=== PATIENT | male | born 1965 | race Caucasian/White ===

== ENCOUNTER 2018-04-06 10:02 | Emergency (ER) | payer MEDICARE ==
[~2018-04-06] VITALS: Ht 172.7 cm; Wt 84.4 kg
--- NOTE | 2018-04-06 10:51 | PHYS DOC ---
Past History Past Medical History: Bipolar Adult General Chief Complaint Chief Complaint: BLOODY STOOL HPI HPI Patient is a 52 year old male who presents with complaining of rectal bleeding. Patient states he had history of hemorrhoids and previous episodes of rectal bleeding but this morning had a normal bowel movement and after finishing his bowel movement had dark colored blood in the toilet stool that was larger than his usual patient denies chest pain, shortness of breath, palpitation, no pain, constipation and diarrhea, taking blood thinner medication or changing his bipolar medication. Review of Systems Review of Systems Constitutional: Denies fever or chills [] Eyes: Denies change in visual acuity, redness, or eye pain [] HENT: Denies nasal congestion or sore throat [] Respiratory: Denies cough or shortness of breath [] Cardiovascular: No additional information not addressed in HPI [] GI: Denies abdominal pain, nausea, vomiting, reports bloody stools. : Denies dysuria or hematuria [] Musculoskeletal: Denies back pain or joint pain [] Integument: Denies rash or skin lesions [] Neurologic: Denies headache, focal weakness or sensory changes [] Endocrine: Denies polyuria or polydipsia [] All other systems were reviewed and found to be within normal limits, except as documented in this note. Allergies Allergies Allergies Coded Allergies Type Severity Reaction Last Updated Verified risperidone Allergy Mild 04/06/18 Yes Physical Exam Physical Exam Constitutional: Well developed, well nourished, no acute distress, non-toxic appearance. [] HENT: Normocephalic, atraumatic, oropharynx moist, no oral exudates, nose normal. [] Eyes: PERRLA, EOMI, conjunctiva normal, no discharge. [] Neck: Normal range of motion, no tenderness, supple, no stridor. [] Cardiovascular:Heart rate regular rhythm, no murmur [] Lungs & Thorax: Bilateral breath sounds clear to auscultation [] Abdomen: Bowel sounds normal, soft, no tenderness, no masses, no pulsatile masses. 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 [] Back: No tenderness, no CVA tenderness. [] Extremities: No tenderness, no cyanosis, no clubbing, ROM intact, no edema. [] Neurologic: Alert and oriented X 3, normal motor function, normal sensory function, no focal deficits noted. [] Psychologic: Affect normal, judgement normal, mood normal. [] EKG EKG [] Radiology/Procedures Radiology/Procedures [] Course & Med Decision Making Course & Med Decision Making Pertinent Labs studies reviewed. (See chart for details) Dilution of patient in ER showed 52-year-old male patient presented to ER with complaining of one episode of rectal bleeding after bowel movement. Patient had unremarkable physical exam and labs except for external hemorrhoids and positive guaiac test. 4 episodes of baseball amount of bleeding. He was in ER. Patient history of hemorrhoids and seen by GI specialist and had colonoscopy 2 years ago. Patient instructed to use sitz baths and contact with his GI specialist tomorrow. Patient instructed to return to ER with continued to have rectal bleeding. Dragon Disclaimer Dragon Disclaimer This electronic medical record was generated, in whole or in part, using a voice recognition dictation system. Departure Departure: Impression: Primary Impression: External hemorrhoid, bleeding Disposition: HOME, SELF-CARE (at 11:30) Condition: STABLE Patient Instructions: Hemorrhoids, Sitz Bath Additional Instructions: Drink plenty of liquids Follow-up with your GI specialist tomorrow Return to ER if not getting better Scripts Hydrocortisone (ANUSOL-HC) 30 Gm Cream..g. 1 SARAH TP BID, #30 GM 0 Refills Prov: KAILTYNN SALEEM MD 04/06/18 KAITLYNN SALEEM MD Apr 06, 2018 10:51
[2018-04-06 11:02] LABS: HEMATOCRIT 42.3 % (39.0-53.0); HEMOGLOBIN 14.3 g/dL (13.0-17.5); RED BLOOD COUNT 4.79 x10^6/uL (4.30-5.70); RED CELL DISTRIBUTION WIDTH 13.9 % (11.5-14.5); WHITE BLOOD COUNT 4.6 x10^3/uL (4.0-11.0)
[2018-04-06 11:11] LABS: FECAL OB PT POSITIVE (NEG)
[2018-04-06 11:15] LABS: ALBUMIN 3.9 g/dL (3.4-5.0); ALBUMIN/GLOBULIN RATIO 1.1 (1.0-1.7); CALCIUM 9.2 mg/dL (8.5-10.1); CREATININE 1.1 mg/dL (0.7-1.3); GFR 70.3; POTASSIUM 3.9 mmol/L (3.5-5.1); TOTAL BILIRUBIN 0.4 mg/dL (0.2-1.0); TOTAL PROTEIN 7.3 g/dL (6.4-8.2)
[2018-04-06] MEDS ORDERED: HYDR30CR61 TP (11:34)
[2018-04-06 11:45] VITALS: BP 128/95
== END 2018-04-06 11:46 | disposition home or self-care (01) ==
LOC: ER 10:02
DX: K64.4 Residual hemorrhoidal skin tags (principal); F31.9 Bipolar disorder, unspecified; Z88.8 Allergy status to other drugs, medicaments and biological substances
CPT/HCPCS: 36415; 80053; 82274; 85027; 85610; 85730; 99284

== ENCOUNTER 2018-05-24 09:50 | Emergency (ER) | payer MEDICARE ==
[~2018-05-24] VITALS: Ht 165.1 cm; Wt 81.6 kg
[~2018-05-24 09:50] MED LIST: HYDR30CR61 TP
[2018-05-24] MEDS ORDERED: IV NORMAL SALINE 1,000ML 1,000 ML IV SCH (10:30)
[2018-05-24 10:42] LABS: BASO % 1 % (0-3); EOS % 1 % (0-3); HEMATOCRIT 39.2 % (39.0-53.0); HEMOGLOBIN 13.3 g/dL (13.0-17.5); LYMPH % 24 % (24-48); MEAN CORPUSCULAR HEMOGLOBIN 30 pg (25-35); MEAN CORPUSCULAR HGB CONC 34 g/dL (31-37); MEAN CORPUSCULAR VOLUME 89 fL (79-100); MONO # 0.4 x10^3/uL (0.0-1.1); MONO % 8 % (0-9); NEUT # 2.8 x10^3uL (1.8-7.7); NEUT % 66 % (31-73); PLATELET COUNT 182 x10^3/uL (140-400); RED BLOOD COUNT 4.43 x10^6/uL (4.30-5.70); RED CELL DISTRIBUTION WIDTH 13.9 % (11.5-14.5); WHITE BLOOD COUNT 4.3 x10^3/uL (4.0-11.0)
[2018-05-24 10:47] LABS: CALCIUM 8.9 mg/dL (8.5-10.1); CREATININE 1.2 mg/dL (0.7-1.3); GFR 63.6; POTASSIUM 3.9 mmol/L (3.5-5.1)
--- NOTE | 2018-05-24 11:14 | PHYS DOC ---
Past History Past Medical History: Anxiety, Bipolar Past Surgical History: Knee Replacement, Other Smoking: Cigarettes Alcohol Use: None Drug Use: None Adult General Chief Complaint Chief Complaint: RECTAL BLEED HPI HPI 52-year-old male presents rectal bleeding for the last 2 days. Patient states that he has some bright red blood in the toilet after his last 2 bowel movements. He states he is not constipated. He takes a stool softener daily. He had an extremely worried repaired a little over a month ago. His follow up appointment stated he was healed with no complications. He denies pain with defecation. He denies dizziness, shortness breath, chest pain. He has no other complaints. Review of Systems Review of Systems Constitutional: Denies fever or chills [] Eyes: Denies change in visual acuity, redness, or eye pain [] HENT: Denies nasal congestion or sore throat [] Respiratory: Denies cough or shortness of breath [] Cardiovascular: No additional information not addressed in HPI [] GI: Rectal bleeding[] : Denies dysuria or hematuria [] Musculoskeletal: Denies back pain or joint pain [] Integument: Denies rash or skin lesions [] Neurologic: Denies headache, focal weakness or sensory changes [] Endocrine: Denies polyuria or polydipsia [] All other systems were reviewed and found to be within normal limits, except as documented in this note. Current Medications Current Medications Current Medications Medications (Trade) Dose Ordered Sig/[facility] Start Time Stop Time Status Last Admin Dose Admin Sodium Chloride 1,000 ml @ 1,000 mls/hr Q1H 05/24/18 10:30 05/24/18 11:29 05/24/18 10:33 1,000 MLS/HR Allergies Allergies Allergies Coded Allergies Type Severity Reaction Last Updated Verified risperidone Allergy Mild 04/06/18 Yes Physical Exam Physical Exam Constitutional: Well developed, well nourished, no acute distress, non-toxic appearance. [] HENT: Normocephalic, atraumatic, bilateral external ears normal, oropharynx moist, no oral exudates, nose normal. [] Eyes: PERRLA, EOMI, conjunctiva normal, no discharge. [] Neck: Normal range of motion, no tenderness, supple, no stridor. [] Cardiovascular:Heart rate regular rhythm, no murmur [] Lungs & Thorax: Bilateral breath sounds clear to auscultation [] Abdomen: Bowel sounds normal, soft, no tenderness, no masses, no pulsatile masses. [] Skin: Warm, dry, no erythema, no rash. [] Back: No tenderness, no CVA tenderness. [] Extremities: No tenderness, no cyanosis, no clubbing, ROM intact, no edema. [] Neurologic: Alert and oriented X 3, normal motor function, normal sensory function, no focal deficits noted. [] Psychologic: Affect normal, judgement normal, mood normal. : External anal exam normal with no hemorrhoids seen. Digital rectal exam negative for obvious blood, nonpainful, no hemorrhoids. [] Current Patient Data Vital Signs Vital Signs Date Time Temp Pulse Resp B/P (MAP) Pulse Ox O2 Delivery O2 Flow Rate FiO2 05/24/18 10:31 80 16 112/71 (85) 96 Room Air 05/24/18 09:55 97.9 Lab Results Laboratory Tests Test 05/24/18 10:25 White Blood Count 4.3 x10^3/uL (4.0-11.0) Red Blood Count 4.43 x10^6/uL (4.30-5.70) Hemoglobin 13.3 g/dL (13.0-17.5) Hematocrit 39.2 % (39.0-53.0) Mean Corpuscular Volume 89 fL (79-100) Mean Corpuscular Hemoglobin 30 pg (25-35) Mean Corpuscular Hemoglobin Concent 34 g/dL (31-37) Red Cell Distribution Width 13.9 % (11.5-14.5) Platelet Count 182 x10^3/uL (140-400) Neutrophils (%) (Auto) 66 % (31-73) Lymphocytes (%) (Auto) 24 % (24-48) Monocytes (%) (Auto) 8 % (0-9) Eosinophils (%) (Auto) 1 % (0-3) Basophils (%) (Auto) 1 % (0-3) Neutrophils # (Auto) 2.8 x10^3uL (1.8-7.7) Lymphocytes # (Auto) 1.0 x10^3/uL (1.0-4.8) Monocytes # (Auto) 0.4 x10^3/uL (0.0-1.1) Eosinophils # (Auto) 0.0 x10^3/uL (0.0-0.7) Basophils # (Auto) 0.0 x10^3/uL (0.0-0.2) Sodium Level 137 mmol/L (136-145) Potassium Level 3.9 mmol/L (3.5-5.1) Chloride Level 102 mmol/L (98-107) Carbon Dioxide Level 27 mmol/L (21-32) Anion Gap 8 (6-14) Blood Urea Nitrogen 13 mg/dL (8-26) Creatinine 1.2 mg/dL (0.7-1.3) Estimated GFR (Cockcroft-Gault) 63.6 Glucose Level 104 mg/dL (70-99) H Calcium Level 8.9 mg/dL (8.5-10.1) EKG EKG [] Radiology/Procedures Radiology/Procedures [] Course & Med Decision Making Course & Med Decision Making Pertinent Labs and Imaging studies reviewed. (See chart for details) The patient's labs are unremarkable. He is not anemic. There was no blood on rectal exam. I believe he does had a small fissure that is self resolving. He is stable for discharge at this time. [] Dragon Disclaimer Dragon Disclaimer This electronic medical record was generated, in whole or in part, using a voice recognition dictation system. Departure Departure: Referrals: MARC BENNETT DO (PCP) JAYLIN BENITEZ DO May 24, 2018 11:14
[2018-05-24 11:31] VITALS: BP 112/76
== END 2018-05-24 11:49 | disposition home or self-care (01) ==
LOC: ER 09:50
DX: K62.5 Hemorrhage of anus and rectum (principal); F41.9 Anxiety disorder, unspecified; F31.9 Bipolar disorder, unspecified; F17.210 Nicotine dependence, cigarettes, uncomplicated; Z88.8 Allergy status to other drugs, medicaments and biological substances
CPT/HCPCS: 36415; 80048; 85025; 99283; J7030

== ENCOUNTER 2018-07-03 09:55 | Emergency (ER) | payer MEDICARE ==
[~2018-07-03] VITALS: Ht 165.1 cm; Wt 83.0 kg
--- NOTE | 2018-07-03 10:31 | RAD ---
KNEE LEFT 3V History: Left knee pain Comparison: None. Findings: 3 views of the left knee are submitted. No acute fracture or dislocation is identified. Joint spaces are relatively preserved. Impression: 1. No acute osseous abnormality is identified. Electronically signed by: Keyur Trujillo MD (07/03/2018 10:27 AM) [id number]
--- NOTE | 2018-07-03 10:58 | PHYS DOC ---
Past History Past Medical History: Anxiety, Bipolar Past Surgical History: Knee Replacement, Other Alcohol Use: None Drug Use: None Adult General Chief Complaint Chief Complaint: KNEE INJURY HPI HPI 53-year-old male presenting to the emergency department today with left knee pain. He reports hearing a pop last night but denies any recent falls or injuries to the knee. His pain is a sharp mild to moderate pain worse with walking. Improved with rest. Review of systems is negative for hip pain. ED course: 53-year-old male presenting with left knee pain. X-rays unremarkable. We will discharge the patient home to follow up with PCP. He will need an MRI of the symptoms continue.The patient has been examined and was not found to have an emergency medical condition. The patient was then discharged home in stable condition to follow up with their primary care physician over the next 1-2 days. They were to return if their symptoms worsened or if they were concerned for any reason. They were also instructed to return to the emergency department if they were unable to get the recommended and appropriate follow-up. [id number] discharge instructions and return precautions were given. Patient's questions were answered to their satisfaction. Patient is comfortable with plan. Allergies Allergies Allergies Coded Allergies Type Severity Reaction Last Updated Verified risperidone Allergy Mild 04/06/18 Yes Physical Exam Physical Exam Constitutional: Well developed, well nourished, no acute distress, non-toxic appearance. [] HENT: Normocephalic, atraumatic, bilateral external ears normal, oropharynx moist, no oral exudates, nose normal. [] Eyes: PERRLA, EOMI, conjunctiva normal, no discharge. [] Cardiovascular:Heart rate regular rhythm, no murmur [] Lungs & Thorax: Bilateral breath sounds clear to auscultation [] Skin: Warm, dry, no erythema, no rash. [] Back: No tenderness, no CVA tenderness. [] Extremities: Left knee is nontender to palpation. Normal anterior and posterior drawer test. Normal Koki's test. Normal Brain's test. Neurovascularly intact distally with palpable pulse and 2 second cap refill. No pain with passive range of motion of the hip and nontender ankle on the left. Neurologic: Alert and oriented X 3, normal motor function, normal sensory function, no focal deficits noted. [] Psychologic: Affect normal, judgement normal, mood normal. [] Current Patient Data Vital Signs Vital Signs Date Time Temp Pulse Resp B/P (MAP) Pulse Ox O2 Delivery O2 Flow Rate FiO2 07/03/18 10:00 98.1 100 20 96 Room Air EKG EKG [] Radiology/Procedures Radiology/Procedures [] Course & Med Decision Making Course & Med Decision Making Pertinent Labs and Imaging studies reviewed. (See chart for details) [] Dragon Disclaimer Dragon Disclaimer This electronic medical record was generated, in whole or in part, using a voice recognition dictation system. Departure Departure: Impression: Primary Impression: Left knee pain Disposition: HOME, SELF-CARE Condition: STABLE Referrals: JOB DUMONT (PCP) Patient Instructions: Knee Pain Additional Instructions: Thank you for allowing us to participate in your care today. Return to the emergency department you have any new or worsening symptoms, or if you are concerned for any reason. Return to emergency department if you have any new or concerning symptoms including but not limited to fever, chills, nausea, vomiting, intractable pain, any new rashes, chest pain, shortness of air , uncontrolled bleeding, difficulty breathing, and/or vision loss. Follow up with your primary care physician within 1-2 days. if your pain persists you will need an MRI. Call your Primary Doctor tomorrow and inform them of your visit today. If you do not have a primary care provider we are happy to provide you with a list of our primary care providers contact information. This condition should be evaluated by your primary care physician and any recommended consulting services for continued management within 2 days after discharge. If at any time, you are having difficulty getting into your primary care doctor or a specialist, return to the emergency department. LAURIE RICHARDSON MD Jul 03, 2018 10:58
[2018-07-03 11:25] VITALS: BP 115/52
== END 2018-07-03 11:22 | disposition home or self-care (01) ==
LOC: ER 09:55
DX: M25.562 Pain in left knee (principal); Z88.8 Allergy status to other drugs, medicaments and biological substances; X50.9XXA Other and unspecified overexertion or strenuous movements or postures, initial encounter; Y93.89 Activity, other specified; Y92.89 Other specified places as the place of occurrence of the external cause; Y99.8 Other external cause status
CPT/HCPCS: 73562; 99283

== ENCOUNTER 2018-10-18 17:26 | Emergency (ER) | payer MEDICARE ==
[~2018-10-18] VITALS: Ht 165.1 cm; Wt 83.0 kg
--- NOTE | 2018-10-18 17:41 | ED.ADGEN ---
Past History Past Medical History: Anxiety, Bipolar Past Surgical History: Knee Replacement, Other Alcohol Use: None Drug Use: None Adult General Chief Complaint Chief Complaint ".. I got this frontal headache... but my BP was in the 117/73 range... I think my BP was too low.. that why I got this headache.. I called a friend.. they said that may be the reason. .." HPI HPI Patient is a 53 year old male who presents with above hx and complaints of frontal headache this afternoon. Pt. follows with Brett. Pt. follows with HTN issues with Brett. Pt. has been compliant with HTN meds. Pt. has chronic Lt knee pain. Pt. denies fever, chills, IV drug use, immunosuppression or recent trauma. Pt. does get sinus problems with season changes. Review of Systems Review of Systems Constitutional: Denies fever or chills [] Eyes: Denies change in visual acuity, redness, or eye pain [] HENT:Complaints of nasal congestion Respiratory: Denies cough or shortness of breath [] Cardiovascular: No additional information not addressed in HPI [] GI: Denies abdominal pain, nausea, vomiting, bloody stools or diarrhea [] : Denies dysuria or hematuria [] Musculoskeletal: Denies back pain or joint pain [] Integument: Denies rash or skin lesions [] Neurologic: Denies headache, focal weakness or sensory changes [] Endocrine: Denies polyuria or polydipsia [] All other systems were reviewed and found to be within normal limits, except as documented in this note. Family History Family History Noncontributory Current Medications Current Medications Current Medications Medications (Trade) Dose Ordered Sig/[facility] Start Time Stop Time Status Last Admin Dose Admin Ketorolac Tromethamine (Toradol Im) 60 mg 1X ONCE 10/18/18 18:30 10/18/18 18:31 DC 10/18/18 19:12 60 MG Lactated Ringer's 1,000 ml @ 1,000 mls/hr Q1H 10/18/18 17:53 10/18/18 18:52 DC 10/18/18 19:12 1,000 MLS/HR Ondansetron HCl (Zofran Odt) 8 mg 1X ONCE 10/18/18 18:30 10/18/18 18:31 DC 10/18/18 19:12 8 MG Allergies Allergies Allergies Coded Allergies Type Severity Reaction Last Updated Verified risperidone Allergy Mild 04/06/18 Yes Physical Exam Physical Exam Constitutional: Mild distress. HENT :normal cephalic, atraumatic, bilateral external ears normal, oropharynx moist, no oral exudates, nose normal. [] Eyes: PERRLA, EOMI, conjunctiva normal, no discharge. [] Neck: Normal range of motion, no tenderness, supple, no stridor. [] Cardiovascular:Heart rate regular rhythm, no murmur [] Lungs & Thorax: Bilateral breath sounds clear to auscultation [] Abdomen: Bowel sounds normal, soft, no tenderness, no masses, no pulsatile masses. [] Skin: Warm, dry, no erythema, no rash. [] Back: No tenderness, no CVA tenderness. [] Extremities: No tenderness, no cyanosis, no clubbing, ROM intact, no edema. [] Neurologic: Alert and oriented X 3, normal motor function, normal sensory function, no focal deficits noted. []DTRs +2 patella. No drift. Music Agent equal. Attempt without problems. Psychologic: Affect anxious, judgement normal, mood normal. [] Current Patient Data Vital Signs Vital Signs Date Time Temp Pulse Resp B/P (MAP) Pulse Ox O2 Delivery O2 Flow Rate FiO2 10/18/18 19:17 98.3 84 16 117/88 (98) 95 Room Air Lab Results Laboratory Tests Test 10/18/18 18:43 White Blood Count 6.3 x10^3/uL (4.0-11.0) Red Blood Count 4.46 x10^6/uL (4.30-5.70) Hemoglobin 13.4 g/dL (13.0-17.5) Hematocrit 39.3 % (39.0-53.0) Mean Corpuscular Volume 88 fL (79-100) Mean Corpuscular Hemoglobin 30 pg (25-35) Mean Corpuscular Hemoglobin Concent 34 g/dL (31-37) Red Cell Distribution Width 13.7 % (11.5-14.5) Platelet Count 209 x10^3/uL (140-400) Neutrophils (%) (Auto) 65 % (31-73) Lymphocytes (%) (Auto) 24 % (24-48) Monocytes (%) (Auto) 9 % (0-9) Eosinophils (%) (Auto) 1 % (0-3) Basophils (%) (Auto) 1 % (0-3) Neutrophils # (Auto) 4.1 x10^3uL (1.8-7.7) Lymphocytes # (Auto) 1.5 x10^3/uL (1.0-4.8) Monocytes # (Auto) 0.6 x10^3/uL (0.0-1.1) Eosinophils # (Auto) 0.1 x10^3/uL (0.0-0.7) Basophils # (Auto) 0.0 x10^3/uL (0.0-0.2) Erythrocyte Sedimentation Rate 4 (0-15) Sodium Level 140 mmol/L (136-145) Potassium Level 3.5 mmol/L (3.5-5.1) Chloride Level 102 mmol/L (98-107) Carbon Dioxide Level 28 mmol/L (21-32) Anion Gap 10 (6-14) Blood Urea Nitrogen 14 mg/dL (8-26) Creatinine 1.2 mg/dL (0.7-1.3) Estimated GFR (Cockcroft-Gault) 63.3 Glucose Level 101 mg/dL (70-99) H Calcium Level 8.9 mg/dL (8.5-10.1) EKG EKG [] Radiology/Procedures Radiology/Procedures My interpretation of CT head shows no shift, mass, edema, bleed, or fracture. See formal report when available[] Course & Med Decision Making Course & Med Decision Making Pertinent Labs and Imaging studies reviewed. (See chart for details) Take Tylenol ibuprofen pain. Patient take Benadryl 50 mg up 4 times a day for seasonal complaints and allergies. Follow-up primary care. Return if any concerns. Pt. currently declines spinal tap. [] Final Impression Final Impression 1. Headache[] 2. History of seasonal allergies. Dragon Disclaimer Dragon Disclaimer This electronic medical record was generated, in whole or in part, using a voice recognition dictation system. Discharge Summary Visit Information Final Diagnosis Problems Medical Problems: (1) Head ache Status: Acute Brief Hospital Course Allergies Allergies Coded Allergies Type Severity Reaction Last Updated Verified risperidone Allergy Mild 04/06/18 Yes Vital Signs Vital Signs Date Time Temp Pulse Resp B/P (MAP) Pulse Ox O2 Delivery O2 Flow Rate FiO2 10/18/18 19:17 98.3 84 16 117/88 (98) 95 Room Air Lab Results Laboratory Tests Test 10/18/18 18:43 White Blood Count 6.3 x10^3/uL (4.0-11.0) Red Blood Count 4.46 x10^6/uL (4.30-5.70) Hemoglobin 13.4 g/dL (13.0-17.5) Hematocrit 39.3 % (39.0-53.0) Mean Corpuscular Volume 88 fL (79-100) Mean Corpuscular Hemoglobin 30 pg (25-35) Mean Corpuscular Hemoglobin Concent 34 g/dL (31-37) Red Cell Distribution Width 13.7 % (11.5-14.5) Platelet Count 209 x10^3/uL (140-400) Neutrophils (%) (Auto) 65 % (31-73) Lymphocytes (%) (Auto) 24 % (24-48) Monocytes (%) (Auto) 9 % (0-9) Eosinophils (%) (Auto) 1 % (0-3) Basophils (%) (Auto) 1 % (0-3) Neutrophils # (Auto) 4.1 x10^3uL (1.8-7.7) Lymphocytes # (Auto) 1.5 x10^3/uL (1.0-4.8) Monocytes # (Auto) 0.6 x10^3/uL (0.0-1.1) Eosinophils # (Auto) 0.1 x10^3/uL (0.0-0.7) Basophils # (Auto) 0.0 x10^3/uL (0.0-0.2) Erythrocyte Sedimentation Rate 4 (0-15) Sodium Level 140 mmol/L (136-145) Potassium Level 3.5 mmol/L (3.5-5.1) Chloride Level 102 mmol/L (98-107) Carbon Dioxide Level 28 mmol/L (21-32) Anion Gap 10 (6-14) Blood Urea Nitrogen 14 mg/dL (8-26) Creatinine 1.2 mg/dL (0.7-1.3) Estimated GFR (Cockcroft-Gault) 63.3 Glucose Level 101 mg/dL (70-99) Calcium Level 8.9 mg/dL (8.5-10.1) Brief Hospital Course Mr. Dean is a 53 old male who presented with head ache and seasonal allergies Discharge Information Condition at Discharge: Improved, Stable Disposition/Orders: D/C to Home Dischare Medications Current Medications Ketorolac Tromethamine (Toradol Im) 60 mg 1X ONCE IM Last administered on 10/18at 19:12; Admin Dose 60 MG; Start 10/18/18 at 18:30; Stop 10/18/18 at 18:31; Status DC Ondansetron HCl (Zofran Odt) 8 mg 1X ONCE PO Last administered on 10/18/18at 19 :12; Admin Dose 8 MG; Start 10/18/18 at 18:30; Stop 10/18/18 at 18:31; Status DC Lactated Ringer's 1,000 ml @ 1,000 mls/hr Q1H IV Last administered on at 19:12; Admin Dose 1,000 MLS/HR; Start 10/18/18 at 17:53; Stop 10/18/18 at 18:52; Status DC Active Scripts Active Anusol-Hc (Hydrocortisone) 30 Gm Cream..g. 1 Dasha TP BID Dragon Disclaimer This chart was dictated in whole or in part using Voice Recognition software in a busy, high-work load, and often noisy Emergency Department environment. It may contain unintended and wholly unrecognized errors or omissions. ESME FISHER MD Oct 18, 2018 17:41
[2018-10-18] MEDS ORDERED: IV RINGERS SOLUTION,LACTATED 1,000 ML IV SCH (17:53)
[2018-10-18] MEDS ORDERED: ONDANSETRON ODT 4 MG TAB.RAPDIS PO ONE (18:30)
[2018-10-18] MEDS ORDERED: KETOROLAC 60 MG/2 ML VIAL. IM ONE (18:30)
--- NOTE | 2018-10-18 18:50 | RAD ---
CT Head W/O Contrast: History: Severe headache and facial pain Comparison: none Axial images were obtained without contrast. The de la garza and white matter appears normal and symmetrical for the patients age. There is no mass effect, extraaxial fluid collections or hydrocephalus. There is no gross bleed. There is no focal loss of de la garza-white matter distinction to suggest acute ischemia, i.e. stroke. Impression: No acute findings. End impression CT maxillofacial without contrast History: Facial pain Axial helical images of the face were obtained without contrast. Axial, sagittal and coronal reconstruction was performed. The nasal septum is mostly midline. The ostiomeatal complexes are narrow but patent. The paranasal sinuses are clear. The visualized osseous structures appear intact. The orbits appear normal. Impression: No acute findings. PQRS Compliance Statement: One or more of the following individualized dose reduction techniques were utilized for this examination: 1. Automated exposure control 2. Adjustment of the mA and/or kV according to patient size 3. Use of iterative reconstruction technique Electronically signed by: Ron Varela III, MD (10/18/2018 6:48 PM) [id number]
[2018-10-18 19:02] LABS: BASO % 1 % (0-3); EOS # 0.1 x10^3/uL (0.0-0.7); EOS % 1 % (0-3); HEMATOCRIT 39.3 % (39.0-53.0); HEMOGLOBIN 13.4 g/dL (13.0-17.5); LYMPH # 1.5 x10^3/uL (1.0-4.8); LYMPH % 24 % (24-48); MEAN CORPUSCULAR HEMOGLOBIN 30 pg (25-35); MEAN CORPUSCULAR HGB CONC 34 g/dL (31-37); MEAN CORPUSCULAR VOLUME 88 fL (79-100); MONO # 0.6 x10^3/uL (0.0-1.1); MONO % 9 % (0-9); NEUT # 4.1 x10^3uL (1.8-7.7); NEUT % 65 % (31-73); PLATELET COUNT 209 x10^3/uL (140-400); RED BLOOD COUNT 4.46 x10^6/uL (4.30-5.70); RED CELL DISTRIBUTION WIDTH 13.7 % (11.5-14.5); WHITE BLOOD COUNT 6.3 x10^3/uL (4.0-11.0)
[2018-10-18 19:10] LABS: CALCIUM 8.9 mg/dL (8.5-10.1); CREATININE 1.2 mg/dL (0.7-1.3); GFR 63.3
[2018-10-18 19:17] VITALS: BP 117/88
[2018-10-18 19:29] LABS: POTASSIUM 3.5 mmol/L (3.5-5.1)
[2018-10-18 20:07] LABS: SEDIMENTATION RATE 4 (0-15)
== END 2018-10-18 20:31 | disposition home or self-care (01) ==
LOC: ER 17:26
DX: R51 Headache (principal); R09.81 Nasal congestion; G89.29 Other chronic pain; M25.562 Pain in left knee; F41.9 Anxiety disorder, unspecified; F31.9 Bipolar disorder, unspecified; Z88.8 Allergy status to other drugs, medicaments and biological substances
CPT/HCPCS: 36415; 70450; 70486; 80048; 85025; 85651; 96372; 99285; J1885; J7120; Q0162

== ENCOUNTER 2018-12-01 13:49 | Emergency (ER) | payer MEDICARE ==
[~2018-12-01] VITALS: Ht 165.1 cm; Wt 84.4 kg
[2018-12-01 14:25] LABS: BASO % 1 % (0-3); EOS % 1 % (0-3); HEMATOCRIT 42.7 % (39.0-53.0); HEMOGLOBIN 14.6 g/dL (13.0-17.5); LYMPH # 1.2 x10^3/uL (1.0-4.8); LYMPH % 21 % (24-48); MEAN CORPUSCULAR HEMOGLOBIN 30 pg (25-35); MEAN CORPUSCULAR HGB CONC 34 g/dL (31-37); MEAN CORPUSCULAR VOLUME 88 fL (79-100); MONO # 0.5 x10^3/uL (0.0-1.1); MONO % 8 % (0-9); NEUT % 69 % (31-73); PLATELET COUNT 233 x10^3/uL (140-400); RED BLOOD COUNT 4.87 x10^6/uL (4.30-5.70); RED CELL DISTRIBUTION WIDTH 13.3 % (11.5-14.5); WHITE BLOOD COUNT 5.8 x10^3/uL (4.0-11.0)
--- NOTE | 2018-12-01 14:36 | PHYS DOC ---
Past History Past Medical History: Depression, Hypertension (KAIDEN BREWER DO) Past Surgical History: Other Additional Past Surgical Histo: multiple knee surgeries (KAIDEN BREWER DO) Smoking: Cigarettes, Greater than 1 pack/day Additional Smoking Information: 2.5 PPD SMO[employer] Alcohol Use: None Drug Use: None (KAIDEN BREWER DO) Adult General Chief Complaint Chief Complaint: SUICDAL IDEATION HPI HPI Patient is a 53-year-old male presents with suicidal ideation. This started this morning when he realized he had been scammed out of a large sum of money. He has a plan, to overdose on the medicines that he is taking. He has done this previously. He denies taking an increased dose of his medicines. He denies taking any other medicines. He was brought to the ER by a friend. Denies any homicidal ideation. Symptoms are moderate to severe in intensity.[] (KAIDEN BREWER DO) Review of Systems Review of Systems Constitutional: Denies fever or chills [] Eyes: Denies change in visual acuity, redness, or eye pain [] HENT: Denies nasal congestion or sore throat [] Respiratory: Denies cough or shortness of breath [] Cardiovascular: No chest pain or palpitations[] GI: Denies abdominal pain, nausea, vomiting, bloody stools or diarrhea [] : Denies dysuria or hematuria [] Musculoskeletal: Denies back pain or joint pain [] Integument: Denies rash or skin lesions [] Neurologic: Denies headache, focal weakness or sensory changes [] Endocrine: Denies polyuria or polydipsia [] All other systems were reviewed and found to be within normal limits, except as documented in this note. (KAIDEN BREWER DO) Allergies Allergies Allergies Coded Allergies Type Severity Reaction Last Updated Verified risperidone Allergy Mild 04/06/18 Yes (KAIDEN BREWER DO) Physical Exam Physical Exam Constitutional: Well developed, well nourished, no acute distress, non-toxic appearance. [] HENT: Normocephalic, atraumatic, bilateral external ears normal, oropharynx moist, no oral exudates, nose normal. [] Eyes: PERRLA, EOMI, conjunctiva normal, no discharge. [] Neck: Normal range of motion, no tenderness, supple, no stridor. [] Cardiovascular:Heart rate regular rhythm, no murmur [] Lungs & Thorax: Bilateral breath sounds clear to auscultation [] Abdomen: Bowel sounds normal, soft, no tenderness, no masses, no pulsatile masses. [] Skin: Warm, dry, no erythema, no rash. [] Back: No tenderness, no CVA tenderness. [] Extremities: No tenderness, no cyanosis, no clubbing, ROM intact, no edema. [] Neurologic: Alert and oriented X 3, normal motor function, normal sensory function, no focal deficits noted. [] Psychologic: Affect flat, judgement fair, mood depressed. Poor eye contact[] (DANIELLA,KAIDEN DO) Current Patient Data Vital Signs Vital Signs Date Time Temp Pulse Resp B/P (MAP) Pulse Ox O2 Delivery O2 Flow Rate FiO2 12/01/18 14:10 98.4 91 18 94 Room Air 12/01/18 14:05 185/106 (132) Lab Results Laboratory Tests Test 12/01/18 14:11 White Blood Count 5.8 x10^3/uL (4.0-11.0) Red Blood Count 4.87 x10^6/uL (4.30-5.70) Hemoglobin 14.6 g/dL (13.0-17.5) Hematocrit 42.7 % (39.0-53.0) Mean Corpuscular Volume 88 fL (79-100) Mean Corpuscular Hemoglobin 30 pg (25-35) Mean Corpuscular Hemoglobin Concent 34 g/dL (31-37) Red Cell Distribution Width 13.3 % (11.5-14.5) Platelet Count 233 x10^3/uL (140-400) Neutrophils (%) (Auto) 69 % (31-73) Lymphocytes (%) (Auto) 21 % (24-48) L Monocytes (%) (Auto) 8 % (0-9) Eosinophils (%) (Auto) 1 % (0-3) Basophils (%) (Auto) 1 % (0-3) Neutrophils # (Auto) 4.0 x10^3uL (1.8-7.7) Lymphocytes # (Auto) 1.2 x10^3/uL (1.0-4.8) Monocytes # (Auto) 0.5 x10^3/uL (0.0-1.1) Eosinophils # (Auto) 0.0 x10^3/uL (0.0-0.7) Basophils # (Auto) 0.0 x10^3/uL (0.0-0.2) (KAIDEN BREWER DO) EKG EKG [] (KAIDEN BREWER DO) Radiology/Procedures Radiology/Procedures [] (KAIDEN BREWER DO) Course & Med Decision Making Course & Med Decision Making Pertinent Labs and Imaging studies reviewed. (See chart for details) ED course: Patient arrived, was placed in bed, and tolerated exam well. After the return of the laboratory testing and monitoring indicating that he was medically stable for mental health evaluation and admission if necessary, he was screened by the mental health team. They believe that he would benefit from inpatient admission given that he continues to express suicidal ideation and has the means to do this. At the time of this dictation his ultimate disposition to inpatient mental health facility is still pending. Patient care is endorsed to the nighttime physician at 1800. Medical decision making: Patient with suicidal ideation due to a recent life stress. There is no evidence of a significant toxidrome, no evidence of significant electrolyte abnormality. Patient appears to be medically stable for inpatient mental health care.[] (KAIDEN BREWER DO) Course & Med Decision Making Dr. Bach from [facility] has accepted the patient for transfer and admission. The patient will go by ambulance. (JAYLIN BENITEZ DO) Dragon Disclaimer Dragon Disclaimer This electronic medical record was generated, in whole or in part, using a voice recognition dictation system. (KAIDEN BREWER DO) Departure Departure: Impression: Primary Impression: Suicidal ideation Disposition: 02 XFER SHT-TRM HOSP Condition: STABLE Referrals: JOB DUMONT (PCP) KAIDEN BREWER DO Dec 01, 2018 14:36 JAYLIN BENITEZ DO Dec 01, 2018 21:24
[2018-12-01 14:38] LABS: ACETAMIN < 2.0 mcg/mL (10-30); ETHANOL < 10 mg/dL (0-10); SALIC 5.9 mg/dL (2.8-20.0)
[2018-12-01 14:39] LABS: ALBUMIN 4.3 g/dL (3.4-5.0); ALBUMIN/GLOBULIN RATIO 1.2 (1.0-1.7); CALCIUM 9.2 mg/dL (8.5-10.1); CREATININE 1.2 mg/dL (0.7-1.3); GFR 63.3; MAGNESIUM 1.9 mg/dL (1.8-2.4); POTASSIUM 3.9 mmol/L (3.5-5.1); TOTAL BILIRUBIN 0.4 mg/dL (0.2-1.0); TOTAL PROTEIN 7.8 g/dL (6.4-8.2)
[2018-12-01 14:59] LABS: BILIRUBIN,URINE NEG (NEG); CLARITY,URINE CLEAR; COLOR,URINE YELLOW; GLUCOSE,URINE NEG (NEG)
[2018-12-01 15:00] LABS: BACTERIA,URINE 0 /HPF (0-FEW); NITRITE,URINE NEG (NEG); RBC,URINE 0 /HPF (0-2); SQUAMOUS EPITHELIAL CELL,UR OCC /LPF; UROBILINOGEN,URINE 0.2 mg/dL (0.2 mg/dL); WBC,URINE 0 /HPF (0-4)
[2018-12-01 15:06] LABS: AMPHETAMINE/METHAMPHETAMINE NEG (NEG); BARBITURATES NEG (NEG); BENZODIAZEPINES NEG (NEG); CANNABINOIDS NEG (NEG); COCAINE NEG (NEG); METHADONE NEG (NEG); OPIATES NEG (NEG); PHENCYCLIDINE NEG (NEG)
[2018-12-01] MEDS ORDERED: ACETAMINOPHEN 325 MG TABLET PO ONE (15:45)
[2018-12-01 20:57] VITALS: BP 133/80
== END 2018-12-01 21:30 | disposition short-term general hospital (02) ==
LOC: EEVIPCON 13:49 → ER 13:49
DX: R45.851 Suicidal ideations (principal); F32.9 Major depressive disorder, single episode, unspecified; I10 Essential (primary) hypertension; F17.210 Nicotine dependence, cigarettes, uncomplicated; Z88.8 Allergy status to other drugs, medicaments and biological substances
CPT/HCPCS: 36415; 80053; 80307; 80329; 81001; 83735; 84443; 85025; 99285; G0480; 82003